=== PATIENT | female | born 1960 ===

== ENCOUNTER → 2018-06-29 19:39 | Outpatient (REF) | payer OTHER, SELFPAY ==
[2018-06-29 20:32] LABS: Alanine Aminotransferase 90 IU/L (9-52); Albumin 4.3 g/dL (3.5-5.0); Albumin Globulin Ratio 1.3 (1.0-2.8); Alkaline Phosphatase 104 U/L (38-126); Aspartate Aminotransferase 46 IU/L (14-36); Bilirubin Total 0.4 mg/dL (0.2-1.3); Blood Urea Nitrogen 21 mg/dL (7-17); Calcium 9.6 mg/dL (8.4-10.2); Carbon Dioxide 26 mmol/L (22-32); Chloride 105 mmol/L (98-107); Estimated Glomerular Filt Rate 55.6 mL/min (>60); Globulin 3.3 g/dL (1.7-4.1); Glucose 92 mg/dL (80-110); HEMOLYSIS < 15 (0-50); Potassium 4.5 mmol/L (3.4-5.1); Sodium 141 mmol/L (137-145); Total Protein 7.6 g/dL (6.3-8.2)
[2018-06-29 20:50] LABS: Free T3, Triiodothyronine Free 3.18 pg/mL (2.77-5.27); Free T4, Direct Thyroxine 0.84 ng/dL (0.78-2.19)
[2018-06-29 21:04] LABS: Thyroid Stimulating Hormone 2.64 uIU/mL (0.47-4.68)
[2018-07-02 14:45] LABS: Anti Thyroglobulin Antibody 1 IU/mL (< 2); Thyroid Peroxidase Antibodies 1 IU/mL (< 9)
[2018-07-03 10:34] LABS: Triiodothyronine T3 Total 102 ng/dL (76-181)
== END ==
LOC: LAB 19:39
PROVIDERS: Visit Provider Naturopath
DX: R53.83 Other fatigue (principal); E07.9 Disorder of thyroid, unspecified
CPT/HCPCS: 80053; 84439; 84443; 84479; 84480; 84481; 86376; 86800